=== PATIENT | female | born 1975 | race Caucasian/White ===

== ENCOUNTER 2016-11-18 07:52 | Emergency (ER) | payer MEDICAID ==
[~2016-11-18] VITALS: Wt 58.0 kg
[2016-11-18 08:39] LABS: BASOPHILS % 0.5 % (0.0-2.0); EOSINOPHILS # 0.1 10^3/ul (0.0-0.5); EOSINOPHILS % 0.8 % (0.0-7.0); HEMATOCRIT 41.4 % (37.0-47.0); HEMOGLOBIN 14.1 g/dl (12.0-16.0); LYMPHOCYTES # 1.7 10^3/ul (0.8-2.9); MEAN CORPUSCULAR HEMOGLOBIN 29.6 pg (29.0-33.0); MEAN PLATELET VOLUME 10.4 fl (7.4-10.4); MONOCYTE # 0.5 10^3/ul (0.3-0.9); MONOCYTES % 5.6 % (0.0-11.0); NEUTROPHIL # 5.8 10^3/ul (1.6-7.5); NEUTROPHILS % 72.1 % (39.0-77.0); PLATELET COUNT 174 10^3/UL (140-440); RED BLOOD COUNT 4.76 10^6/ul (4.20-5.40); RED CELL DISTRIBUTION WIDTH 14.7 % (11.5-14.5); UNCORRECTED WBC 8.1 10^3/ul (4.8-10.8); WHITE BLOOD COUNT 8.1 10^3/ul (4.8-10.8)
[2016-11-18 08:42] LABS: CONDITION 1; LH ANALYZER COMMENTS 1
[2016-11-18 08:54] LABS: ADD UMIC YES; URINE BILIRUBIN (Dip) NEGATIVE (NEGATIVE); URINE BLOOD (Dip) 3+ (NEGATIVE); URINE GLUCOSE (Dip) NEGATIVE (NEGATIVE); URINE KETONES (Dip) 15 (NEGATIVE); URINE LEUKOCYTE ESTERASE (Dip) NEGATIVE (NEGATIVE); URINE NITRITE (Dip) NEGATIVE (NEGATIVE); URINE TOTAL PROTEIN (Dip) 2+ (NEGATIVE); URINE UROBILINOGEN (Dip) 0.2 E.U./dL (0.1-1.0)
[2016-11-18 08:55] LABS: URINE COLOR RED (YELLOW)
--- NOTE | 2016-11-18 08:57 | RADRPT ---
PROCEDURE: US OB. CLINICAL INDICATION: Vaginal bleeding in . TECHNIQUE: Transabdominal and endovaginal imaging of the uterus is available for review COMPARISON: None available FINDINGS: No intrauterine is identified. The endometrial stripe is heterogeneous and measures 21 mm in thickness. The uterus is otherwise unremarkable. The right ovary measures 3.1 x 1.4 x 3.7 cm a nd the left ovary measures 3.1 x 3.0 x 7 cm. No adnexal mass is identified. No significant free fl uid is noted within the pelvis. IMPRESSION: No intrauterine identified. There are no adnexal masses. Correlation with serial beta HC Gs and repeat pelvic ultrasound as clinically indicated, is recommended, as ectopic is not excluded on this examination. RPTAT: HH .Karol Lindsay MD, Date Time Electronically viewed and signed by .Karol Lindsay MD, on 11/18/2016 08:57 .G/
[2016-11-18 08:59] LABS: URINE RBCS >200 /HPF (0)
[2016-11-18] MEDS ORDERED: ACETAMINOPHEN 500 MG TAB PO STA (09:06)
[2016-11-18] MEDS ORDERED: ACET500C5 PO (09:30)
[2016-11-18] MEDS ORDERED: ACET325T33 PO ×2 (09:30→15:26)
--- NOTE | 2016-11-18 09:48 | ERD ---
ER Documentation Chief Complaint Date/Time DATE: 11/18/16 TIME: 09:41 Chief Complaint mild abd pain and vag bleed since this am. 10 wks preg. no dysuria HPI This is a 41-year-old female G 4 P3 stating she is 10 weeks presenting to the emergency room complaining of pelvic pain and vaginal bleeding since this morning. Patient states that her last menstrual period was August 31. 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 Patient states that she has used 4 pads since this morning. Patient denies any nausea, vomiting, patient describes the pain as contractions ROS All systems reviewed and are negative except as per history of present illness. Medications Home Meds Active Scripts Acetaminophen* (Tylenol*) 325 Mg Tablet, 2 TAB PO Q6 Y for PAIN AND OR ELEVATED TEMP, #20 TAB Prov:JOAQUINA VALLE PA-C 11/18/16 Acetaminophen* (Tylophen*) 500 Mg Capsule, 1 CAP PO Q6H Y for PAIN AND OR ELEVATED TEMP, #20 CAP Prov:JOAQUINA VALLE PA-C 11/18/16 Allergies Allergies: Coded Allergies: No Known Allergy (Unverified , 11/18/16) PMhx/Soc Medical and Surgical Hx: pt denies Medical Hx, pt denies Surgical Hx Hx Alcohol Use: No Hx Substance Use: No Hx Tobacco Use: No Physical Exam Vitals Vital Signs Date Time Temp Pulse Resp B/P Pulse Ox O2 Delivery O2 Flow Rate FiO2 11/18/16 07:56 98.6 112 20 140/88 99 Physical Exam Const: [] Head: Atraumatic Eyes: Normal Conjunctiva ENT: Normal External Ears, Nose and Mouth. Neck: Full range of motion..~ No meningismus. Resp: Clear to auscultation bilaterally Cardio: Regular rate and rhythm, no murmurs Abd: Soft, non tender, non distended. Normal bowel sounds Skin: No petechiae or rashes Back: No midline or flank tenderness Ext: No cyanosis, or edema Neur: Awake and alert Psych: Normal Mood and Affect Result Diagram: 11/18/16 0825 Results 24 hrs Laboratory Tests Test 11/18/16 08:25 Basophils # 0.010^3/ul Basophils % 0.5% Beta HCG, Quantitative 3812.6mIU/ml Blood Morphology Comment Eosinophils # 0.110^3/ul Eosinophils % 0.8% Hematocrit 41.4% Hemoglobin 14.1g/dl Lymphocytes # 1.710^3/ul Lymphocytes % 21.0% Mean Corpuscular Hemoglobin 29.6pg Mean Corpuscular Hemoglobin Concent 34.0g/dl Mean Corpuscular Volume 87.0fl Mean Platelet Volume 10.4fl Monocytes # 0.510^3/ul Monocytes % 5.6% Neutrophils # 5.810^3/ul Neutrophils % 72.1% Nucleated Red Blood Cells # 0.010^3/ul Nucleated Red Blood Cells % 0.0/100WBC Platelet Count 03960^3/UL Red Blood Count 4.7610^6/ul Red Cell Distribution Width 14.7% Urine Bilirubin NEGATIVE Urine Clarity SLIGHTLY CLOUDY Urine Color RED Urine Glucose NEGATIVE% Urine Hemoglobin 3+ Urine Ketones 15 Urine Leukocyte Esterase NEGATIVE Urine Microscopic RBC >200/HPF Urine Microscopic WBC NONE SEEN/HPF Urine Nitrite NEGATIVE Urine Specific [place] 1.020 Urine Total Protein 2+ Urine Urobilinogen 0.2 E.U./dL Urine pH 7.0 White Blood Count 8.110^3/ul Current Medications Medications (Trade) Dose Ordered Sig/Vianey Route PRN Reason Start Time Stop Time Status Last Admin Dose Admin Acetaminophen (Tylenol Tab) 1,000 mg ONCE STAT PO 11/18/16 09:06 11/18/16 09:07 DC 11/18/16 09:13 Procedures/MDM This is a 41-year-old female stating she is 10 weeks presenting to the emergency room complaining of pelvic pain and vaginal bleeding in . Lab work was drawn. CBC did not show any evidence of leukocytosis or anemia. Beta hcg was 3812. An OB ultrasound was done and radiologist stated: No intrauterine identified. There are no adnexal masses. Correlation with serial beta HCGs and repeat pelvic ultrasound as clinically indicated, is recommended, as ectopic is not excluded on this examination. My differentials include but not limited to threatened vs complete , ectopic , early . 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 I discussed that she is unable to follow-up with her JUNIOR QA ANALYST to return in 2 days for repeat ultrasound and blood work. I discussed the patient to return to the ER for any worsening signs or symptoms. Patient understands and agrees with this plan Departure Diagnosis: Primary Impression: Vaginal bleeding in patient at less than 20 weeks ges... Additional Impression: Threatened Condition: Fair Patient Instructions: Bleeding During Early , Possible Miscarriage ( Threatened ) Additional Instructions: Visite a page [email or web address] para un EXAMEN.Regrese a estas instalaciones si no se mejora emerita esperbamos o emerita le dijimos. Regrese a estas instalaciones dentro de [facility] para un examen de seguimiento.Regrese antes si page condicin se empeora. [place] toda la medicina kj y emerita se le indic. Regrese a estas instalaciones si no se mejora emerita esperbamos o emerita le dijimos. JOAQUINA VALLE PA-C Nov 18, 2016 09:48
== END 2016-11-18 10:25 | disposition home or self-care (01) ==
LOC: FTE 07:52
DX: O20.9 Hemorrhage in early pregnancy, unspecified (principal); O20.0 Threatened abortion; R10.2 Pelvic and perineal pain
CPT/HCPCS: 36415; 76801; 76817; 81001; 84702; 85025; 86900; 86901; Z7502; Z7610; 81003

== ENCOUNTER 2016-11-18 12:25 | Emergency (ER) | payer MEDICAID ==
[~2016-11-18] VITALS: Wt 57.2 kg
[~2016-11-18 12:25] MED LIST: ACET325T33 PO; ACET500C5 PO
[2016-11-18] MEDS ORDERED: SOD CHLORIDE 0.9% 1,000 ML IV STA (13:38)
[2016-11-18] MEDS ORDERED: ACETAMINOPHEN 325 MG TAB PO STA (13:38)
[2016-11-18 14:17] LABS: ADD UMIC YES; URINE BILIRUBIN (Dip) 1+ (NEGATIVE); URINE BLOOD (Dip) 3+ (NEGATIVE); URINE COLOR YELLOW (YELLOW); URINE GLUCOSE (Dip) NEGATIVE (NEGATIVE); URINE KETONES (Dip) 40 (NEGATIVE); URINE LEUKOCYTE ESTERASE (Dip) NEGATIVE (NEGATIVE); URINE NITRITE (Dip) NEGATIVE (NEGATIVE); URINE TOTAL PROTEIN (Dip) 2+ (NEGATIVE); URINE UROBILINOGEN (Dip) 0.2 E.U./dL (0.1-1.0)
[2016-11-18 14:18] LABS: BASOPHILS % 0.2 % (0.0-2.0); HEMATOCRIT 36.4 % (37.0-47.0); HEMOGLOBIN 12.4 g/dl (12.0-16.0); LYMPHOCYTES # 0.6 10^3/ul (0.8-2.9); LYMPHOCYTES % 4.7 % (15.0-51.0); MEAN CORPUSCULAR HEMOGLOBIN 29.5 pg (29.0-33.0); MEAN CORPUSCULAR VOLUME 86.7 fl (82.0-101.0); MEAN PLATELET VOLUME 10.1 fl (7.4-10.4); MONOCYTE # 0.5 10^3/ul (0.3-0.9); MONOCYTES % 3.5 % (0.0-11.0); NEUTROPHIL # 12.4 10^3/ul (1.6-7.5); NEUTROPHILS % 91.6 % (39.0-77.0); PLATELET COUNT 180 10^3/UL (140-440); RED CELL DISTRIBUTION WIDTH 14.8 % (11.5-14.5); UNCORRECTED WBC 13.6 10^3/ul (4.8-10.8); WHITE BLOOD COUNT 13.6 10^3/ul (4.8-10.8)
[2016-11-18 14:19] LABS: CONDITION 1; LH ANALYZER COMMENTS 1
[2016-11-18 14:22] LABS: ICTOTEST NEGATIVE (NEGATIVE); MUCUS,URINE MODERATE; SQUAMOUS EPITHELIAL CELL,UR FEW; URINE RBCS >200 /HPF (0)
[2016-11-18 14:22] LABS: ALBUMIN 4.2 g/dl (3.3-4.9); INR 1.04; PROTIME 13.6 Sec (12.2-14.2); PT RATIO 1.1
[2016-11-18 14:23] LABS: POTASSIUM 4.3 mmol/L (3.5-5.1)
[2016-11-18 14:25] LABS: BILIRUBIN,INDIRECT 0.3 mg/dl (0-1.1); BILIRUBIN,TOTAL 0.3 mg/dl (0.2-1.3); CREATININE 0.56 mg/dl (0.44-1.00)
[2016-11-18 14:26] LABS: ALBUMIN/GLOBULIN RATIO 1.35; CALCIUM 9.2 mg/dl (8.4-10.2); TOTAL PROTEIN 7.3 g/dl (6.1-8.1)
[2016-11-18] MEDS ORDERED: ACET325T33 PO (15:26)
--- NOTE | 2016-11-18 15:31 | ERD ---
ER Documentation Chief Complaint Date/Time DATE: 11/18/16 TIME: 15:28 Chief Complaint INCREASED VAG BLEED AND DIAPHORESIS AND SYNCOPAL EPISODE IN BATHROOM HPI 41-year-old woman here for reevaluation for continued vaginal bleeding. She states she was in her bathroom and felt lightheaded and had heavy vaginal bleeding and clots passed. She was just seen and evaluated earlier today for similar symptoms, obstetrical ultrasound did not reveal any intrauterine and her beta hCG was 3812. She denies actual loss of consciousness, no fevers or chills, no chest pain or shortness of breath, no headache or blurry vision. ROS All systems reviewed and are negative except as per history of present illness. Medications Home Meds Active Scripts Acetaminophen* (Tylenol*) 325 Mg Tablet, 2 TAB PO Q8 Y for PAIN AND OR ELEVATED TEMP, #30 TAB Prov:FABIO PAUL MD 11/18/16 Discontinued Scripts Acetaminophen* (Tylenol*) 325 Mg Tablet, 2 TAB PO Q6 Y for PAIN AND OR ELEVATED TEMP, #20 TAB Prov:JOAQUINA VALLE PA-C 11/18/16 Acetaminophen* (Tylophen*) 500 Mg Capsule, 1 CAP PO Q6H Y for PAIN AND OR ELEVATED TEMP, #20 CAP Prov:JOAQUINA VALLE PA-C 11/18/16 Allergies Allergies: Coded Allergies: No Known Allergy (Unverified , 11/18/16) PMhx/Soc None Medical and Surgical Hx: pt denies Medical Hx, pt denies Surgical Hx History of Surgery: No Anesthesia Reaction: No Hx Neurological Disorder: No Hx Respiratory Disorders: No Hx Cardiac Disorders: No Hx Psychiatric Problems: No Hx Miscellaneous Medical Probl: No Hx Alcohol Use: No Hx Substance Use: No Hx Tobacco Use: No Smoking Status: Never smoker FmHx Family History: No diabetes Physical Exam Vitals Vital Signs Date Time Temp Pulse Resp B/P Pulse Ox O2 Delivery O2 Flow Rate FiO2 11/18/16 15:38 98.5 72 20 107/68 100 Room Air 11/18/16 15:03 84 22 129/112 98 Room Air 11/18/16 12:36 97.5 81 20 95/52 98 Physical Exam GENERAL: Well-developed, well-nourished, well-hydrated, hypotensive HEENT: Moist mucous membranes, pink conjunctiva, no cervical spine tenderness or step-off deformities, no goiter, no jaundice or icterus, extraocular movements intact without pain. No submandibular induration, and no pharyngeal erythema NEURO: Alert and oriented 3, cranial nerves II through XII intact bilaterally, pupils equal round reactive to light, no focal deficits or facial asymmetry, sensation intact distally Strength 5/5 in upper and lower extremities bilaterally CARDIAC: Tachycardic and regular, no murmurs rubs or gallops LUNGS: Clear bilaterally no wheezing crackles or stridor ABDOMEN: Soft nontender, no guarding, no rigidity, no rebound, no psoas sign no obturator sign. Normoactive bowel sounds SKIN: Warm and dry to touch, no abrasions, contusions, or hematomas, no lacerations, no ecchymosis, no target lesions, and without ulcers EXTREMITIES: No clubbing cyanosis or edema, calves are bilaterally symmetrical, no Homans sign, no popliteal cord sign. Distal pulses equal and bilateral PSYCH: Normal affect without agitation or irritability Result Diagram: 11/18/16 1349 11/18/16 1349 Results 24 hrs Laboratory Tests Test 11/18/16 13:38 11/18/16 13:49 Urine Bilirubin 1+ Urine Clarity BLOODY Urine Color YELLOW Urine Glucose NEGATIVE% Urine Hemoglobin 3+ Urine Ictotest NEGATIVE Urine Ketones 40 Urine Leukocyte Esterase NEGATIVE Urine Microscopic RBC >200/HPF Urine Microscopic WBC 0-2/HPF Urine Mucus MODERATE Urine Nitrite NEGATIVE Urine Specific [place] >=1.030 Urine Squamous Epithelial Cells FEW Urine Total Protein 2+ Urine Urobilinogen 0.2 E.U./dL Urine pH 5.5 Activated Partial Thromboplast Time 24.0Sec Alanine Aminotransferase (ALT/SGPT) 25IU/L Albumin 4.2g/dl Albumin/Globulin Ratio 1.35 Alkaline Phosphatase 68IU/L Anion Gap 17 Aspartate Amino Transf (AST/SGOT) 19IU/L Basophils # 0.010^3/ul Basophils % 0.2% Beta HCG, Quantitative 2350.2mIU/ml Blood Morphology Comment Blood Urea Nitrogen 10mg/dl Calcium Level 9.2mg/dl Carbon Dioxide Level 24mmol/L Chloride Level 104mmol/L Creatinine 0.56mg/dl Direct Bilirubin 0.00mg/dl Eosinophils # 0.010^3/ul Eosinophils % 0.0% Globulin 3.10g/dl Glucose Level 126mg/dl Hematocrit 36.4% Hemoglobin 12.4g/dl INR International Normalized Ratio 1.04 Indirect Bilirubin 0.3mg/dl Lymphocytes # 0.610^3/ul Lymphocytes % 4.7% Mean Corpuscular Hemoglobin 29.5pg Mean Corpuscular Hemoglobin Concent 34.0g/dl Mean Corpuscular Volume 86.7fl Mean Platelet Volume 10.1fl Monocytes # 0.510^3/ul Monocytes % 3.5% Neutrophils # 12.410^3/ul Neutrophils % 91.6% Nucleated Red Blood Cells # 0.010^3/ul Nucleated Red Blood Cells % 0.0/100WBC Platelet Count 78566^3/UL Potassium Level 4.3mmol/L Prothrombin Time 13.6Sec Prothrombin Time Ratio 1.1 Red Blood Count 4.2010^6/ul Red Cell Distribution Width 14.8% Sodium Level 141mmol/L Total Bilirubin 0.3mg/dl Total Protein 7.3g/dl White Blood Count 13.610^3/ul Current Medications Medications (Trade) Dose Ordered Sig/Vianey Route PRN Reason Start Time Stop Time Status Last Admin Dose Admin Sodium Chloride (NS) 1,000 ml @ 2,000 mls/hr Q30M STAT IV 11/18/16 13:38 11/18/16 14:07 DC 11/18/16 14:06 Acetaminophen (Tylenol Tab) 650 mg ONCE STAT PO 11/18/16 13:38 11/18/16 13:40 DC 11/18/16 14:06 Procedures/MDM IV line was established patient was placed on surveillance system monitor rhythm strip revealed a sinus rhythm at about 80 bpm with upright P and T waves. Patient was afebrile. I administered 2 L normal saline intravenously for dehydration, and acetaminophen 650 mg p.o. with good effect. CBC and electrolytes were normal, liver function tests were normal, urine analysis was negative for infection. Beta-hCG was 2350, which is down from earlier today I reviewed her earlier obstetric ultrasound. There was no ectopic noted there was no intrauterine noted and with this falling beta-hCG and continued vaginal bleeding I do suspect complete miscarriage. Patient feels much better and her vital signs are normal. She is without complaints of pain and can be managed as an outpatient with follow-up with her forge operator. Patient states her vaginal bleeding has resolved while here in the ED. Differential diagnoses considered, included but not limited to cervicitis, retained products of conception, ectopic , anemia, seizure, syncope, sepsis, stroke, meningitis, encephalitis, pneumonia, appendicitis, cholecystitis , bowel obstruction, pyelonephritis, nephrolithiasis, cystitis, as well as metabolic, hematologic, and electrolyte abnormalities. As well as abscess, cellulitis, fractures, and dislocations. Patient feels much better at this time, and vital signs are normal, symptoms have improved. I did give strict instructions to return to the ED if symptoms continue or worsen, patient will otherwise follow-up with primary care physician. Patient understood instructions and agreed to plan. Departure Diagnosis: Primary Impression: Complete miscarriage Additional Impression: Excessive vaginal bleeding Condition: Good Patient Instructions: Miscarriage, Spontaneous (Completed) FABIO PAUL MD Nov 18, 2016 15:31
[2016-11-18 15:38] VITALS: BP 107/68; PULSE 72; RESP 20; TEMP 98.5
== END 2016-11-18 15:50 | disposition home or self-care (01) ==
LOC: E/R 12:25
DX: O03.9 Complete or unspecified spontaneous abortion without complication (principal)
CPT/HCPCS: 36415; 80053; 81001; 84702; 85025; 85610; 85730; 86850; 86900; 86901; J7030; Z7502; Z7610; 81003

== ENCOUNTER 2018-12-08 15:52 | Emergency (ER) | payer MEDICAID ==
[~2018-12-08] VITALS: Ht 154.9 cm; Wt 59.1 kg
[~2018-12-08 15:52] MED LIST changes: -ACET500C5 PO
[2018-12-08 15:57] VITALS: Ht 154.9 cm; Wt 59.1 kg
--- NOTE | 2018-12-08 17:22 | ERD ---
ER Documentation Chief Complaint Chief Complaint 8 WKLS PREG WITH VAGINAL BLEEDING & PELVIC PAIN HPI Patient is a 43-year-old female who is with 1 miscarriage approximately 8 weeks complaining of light vaginal bleeding that began today. She has mild lower pelvic pain as well. She denies any clots. No dysuria or frequency. No fever. No nausea or vomiting or diarrhea. ROS All systems reviewed and are negative except as per history of present illness. Medications Home Meds Active Scripts Cephalexin* (Keflex*) 500 Mg Capsule, 500 MG PO TID for 5 Days, CAP Prov:CARLOS DANG PA-C 12/08/18 Acetaminophen* (Tylenol*) 325 Mg Tablet, 2 TAB PO Q8 PRN for PAIN AND OR ELEVATED TEMP, #30 TAB Prov:FABIO PAUL MD 11/18/16 Allergies Allergies: Coded Allergies: No Known Allergy (Unverified , 11/18/16) PMhx/Soc History of Surgery: No Anesthesia Reaction: No Hx Neurological Disorder: No Hx Respiratory Disorders: No Hx Cardiac Disorders: No Hx Psychiatric Problems: No Hx Miscellaneous Medical Probl: No Hx Alcohol Use: No Hx Substance Use: No Hx Tobacco Use: No Smoking Status: Never smoker FmHx Family History: No diabetes Physical Exam Vitals Vital Signs Date Temp Pulse Resp B/P (MAP) Pulse Ox O2 O2 Flow FiO2 Time Delivery Rate 12/08/18 98.9 89 16 134/65 99 15:57 (88) Physical Exam INITIAL VITAL SIGNS: Reviewed by me GENERAL: Awake, alert and oriented x 4, well appearing, nontoxic, speaking in full sentences. No acute distress HEAD: Atraumatic NECK: Supple. No masses. Full range of motion. No meningismus. No midline tenderness. EYES: EOMI. PERRL. RESPIRATORY: Clear to auscultation bilaterally. Symmetric chest wall rise. No wheezing or rales. No accessory muscle use. CV: Regular rate and rhythm. No murmurs, rubs, or gallops. ABDOMEN: Soft, non-distended. Nontender. Negative [place]. Negative Mc[place]neys point tenderness. No CVA tenderness bilaterally. No guarding. No rebound. Result Diagram: 12/08/18 1701 Results 24 hrs Laboratory Tests Test 12/08/18 17:01 White Blood Count 8.8 10^3/ul Red Blood Count 4.36 10^6/ul Hemoglobin 12.7 g/dl Hematocrit 38.0 % Mean Corpuscular Volume 87.2 fl Mean Corpuscular Hemoglobin 29.1 pg Mean Corpuscular Hemoglobin Concent 33.4 g/dl Red Cell Distribution Width 13.3 % Platelet Count 204 10^3/UL Mean Platelet Volume 10.6 fl Immature Granulocytes % 0.300 % Neutrophils % 70.1 % Lymphocytes % 22.1 % Monocytes % 5.9 % Eosinophils % 1.0 % Basophils % 0.6 % Nucleated Red Blood Cells % 0.0 /100WBC Immature Granulocytes # 0.030 10^3/ul Neutrophils # 6.2 10^3/ul Lymphocytes # 2.0 10^3/ul Monocytes # 0.5 10^3/ul Eosinophils # 0.1 10^3/ul Basophils # 0.1 10^3/ul Nucleated Red Blood Cells # 0.0 10^3/ul Urine Color STRAW Urine Clarity SLIGHTLY CLOUDY Urine pH 7.0 Urine Specific [place] 1.004 Urine Ketones NEGATIVE mg/dL Urine Nitrite NEGATIVE mg/dL Urine Bilirubin NEGATIVE mg/dL Urine Urobilinogen NEGATIVE mg/dL Urine Leukocyte Esterase 3+ Timmy/ul Urine Microscopic RBC 6 /HPF Urine Microscopic WBC 15 /HPF Urine Squamous Epithelial Cells MODERATE /HPF Urine Bacteria FEW /HPF Urine Hemoglobin 3+ mg/dL Urine Glucose NEGATIVE mg/dL Urine Total Protein NEGATIVE mg/dl Beta HCG, Quantitative 07055.0 mIU/ml Procedures/MDM The differential diagnosis includes but is not limited to threatened/incomplete/inevitable/complete , ectopic , non- related bleeding, and others. Findings are consistent with probable demise. Patient was given copies of everything and was advised to return here in 2 days for follow-up ultrasound and beta hCG. He was given copies of all of her results. Patient counseled regarding my diagnostic impression and care plan. Prior to discharge all questions answered. Pt agrees with treatment plan and understands strict return precautions. Pt is instructed to follow up with primary care provider within 24-48 hours. Precautionary instructions provided including instructions to return to the ER if not improving or for any worsening or changing symptoms or concerns. Departure Diagnosis: Primary Impression: Cystitis Additional Impression: demise Condition: Stable CARLOS DANG PA-C Dec 08, 2018 17:22
[2018-12-08 18:49] VITALS: BP 118/72; PULSE 74; RESP 19
[2018-12-08] MEDS ORDERED: CEPH-443 PO (18:49)
== END 2018-12-08 18:55 | disposition home or self-care (01) ==
LOC: FTE 15:52
DX: O23.11 Infections of bladder in pregnancy, first trimester (principal); O02.1 Missed abortion
CPT/HCPCS: 76801; 76817; 81001; 84702; 85025; 86900; 86901; Z7502

== ENCOUNTER 2018-12-10 05:11 | Emergency (ER) | payer MEDICAID ==
[~2018-12-10] VITALS: Ht 157.5 cm; Wt 59.0 kg
[~2018-12-10 05:11] MED LIST changes: +CEPH-443 PO
[2018-12-10 05:28] VITALS: Ht 157.5 cm; Wt 59.0 kg
--- NOTE | 2018-12-10 06:17 | ERD ---
ER Documentation Chief Complaint Chief Complaint 8 weeks ; vag bleed x 1 day; 6 pads in 12 hours, dizzy, weakness HPI 43-year-old female, G5, P3 presents to the emergency department, complaining of vaginal bleeding for 1 day. The patient has a EGA 8 weeks. She is complaining of severe pain, feeling dizzy. ROS All systems reviewed and are negative except as per history of present illness. Medications Home Meds Active Scripts Cephalexin* (Keflex*) 500 Mg Capsule, 500 MG PO TID for 5 Days, CAP Prov:CARLOS DANG PA-C 12/08/18 Acetaminophen* (Tylenol*) 325 Mg Tablet, 2 TAB PO Q8 PRN for PAIN AND OR ELEVATED TEMP, #30 TAB Prov:FABIO PAUL MD 11/18/16 Allergies Allergies: Coded Allergies: No Known Allergy (Unverified , 11/18/16) PMhx/Soc History of Surgery: No Anesthesia Reaction: No Hx Neurological Disorder: No Hx Respiratory Disorders: No Hx Cardiac Disorders: No Hx Psychiatric Problems: No Hx Miscellaneous Medical Probl: No Hx Alcohol Use: No Hx Substance Use: No Hx Tobacco Use: No FmHx Family History: No diabetes, No coronary disease Physical Exam Vitals Vital Signs Date Temp Pulse Resp B/P (MAP) Pulse Ox O2 O2 Flow FiO2 Time Delivery Rate 12/10/18 98.6 78 18 92/52 (65) 98 Room Air 10:35 12/10/18 98.2 71 18 104/53 99 Room Air 06:49 (70) 12/10/18 98.5 72 16 96/52 (67) 100 05:28 Physical Exam Const: No acute distress Head: Atraumatic Eyes: Normal Conjunctiva ENT: Normal External Ears, Nose and Mouth. Neck: Full range of motion. No meningismus. Resp: Clear to auscultation bilaterally Cardio: Regular rate and rhythm, no murmurs Abd: Soft, non tender, non distended. Normal bowel sounds Skin: No petechiae or rashes Back: No midline or flank tenderness Ext: No cyanosis, or edema Neur: Awake and alert Psych: Normal Mood and Affect Result Diagram: 12/10/18 0642 12/10/18 0642 Results 24 hrs Laboratory Tests Test 12/10/18 06:42 12/10/18 09:25 12/10/18 09:26 White Blood Count 17.9 10^3/ul Red Blood Count 4.30 10^6/ul Hemoglobin 12.6 g/dl Hematocrit 36.4 % Mean Corpuscular Volume 84.7 fl Mean Corpuscular Hemoglobin 29.3 pg Mean Corpuscular Hemoglobin Concent 34.6 g/dl Red Cell Distribution Width 13.4 % Platelet Count 215 10^3/UL Mean Platelet Volume 11.0 fl Immature Granulocytes % 0.700 % Neutrophils % 85.5 % Lymphocytes % 9.5 % Monocytes % 3.7 % Eosinophils % 0.3 % Basophils % 0.3 % Nucleated Red Blood Cells % 0.0 /100WBC Immature Granulocytes # 0.130 10^3/ul Neutrophils # 15.3 10^3/ul Lymphocytes # 1.7 10^3/ul Monocytes # 0.7 10^3/ul Eosinophils # 0.1 10^3/ul Basophils # 0.1 10^3/ul Nucleated Red Blood Cells # 0.0 10^3/ul Sodium Level 137 mmol/L Potassium Level 4.2 mmol/L Chloride Level 103 mmol/L Carbon Dioxide Level 23 mmol/L Anion Gap 11 Blood Urea Nitrogen 9 mg/dl Creatinine 0.49 mg/dl Est Glomerular Filtrat Rate mL/min > 60 mL/min Glucose Level 144 mg/dl Calcium Level 9.4 mg/dl Bedside Urine pH (LAB) 6.5 Bedside Urine Protein (LAB) Trace Bedside Urine Glucose (UA) Negative Bedside Urine Ketones (LAB) 2+ Bedside Urine Blood 3+ Bedside Urine Nitrite (LAB) Negative Bedside Urine Leukocyte Esterase (L Negative POC Beta HCG, Qualitative POSITIVE Current Medications Medications Dose Sig/Vianey Start Time Status Last (Trade) Ordered Route PRN Stop Time Admin Dose Reason Admin Sodium 1,000 ml @ Q1H STAT 12/10/18 DC 12/10/18 Chloride 1,000 mls/hr IV 06:18 12/10/18 06:44 07:17 Morphine 4 mg ONCE STAT 12/10/18 Cancel Sulfate IV 06:18 12/10/18 (morphine) 06:19 Ondansetron 4 mg ONCE STAT 12/10/18 DC 12/10/18 HCl (Zofran IV 06:18 12/10/18 06:44 Inj) 06:20 0.5 mg ONCE STAT 12/10/18 DC 12/10/18 Hydromorphone IV 06:32 12/10/18 06:45 HCl 06:34 (Dilaudid) Sodium 1,000 ml @ Q1H ONCE 12/10/18 DC 12/10/18 Chloride 1,000 mls/hr IV 07:00 12/10/18 07:16 07:59 Departure Diagnosis: Primary Impression: Complete miscarriage Condition: Stable Additional Instructions: Muchas amy por [facility] para page servicio. Esperamos que en page visita a la leyda de emergencia page problema medico haya sido solucionado y que se sienta mucho mejor. Para estar seguros que page mejoria sigue en proceso, le pedimos el favor de hacer luis f valdo de seguimiento medico con page doctor primario en los proximos 2-4 alicea. Lleve con usted estos documentos y las medicinas recetadas. Si declan sintomas empeoran, NO SE ESPERE, por favor regrese a leyda de emergencia INMEDIATAMENTE. En cyndi que usted no tenga un mdico de atencin primaria: Llame al mdico o clnica comunitaria de referencia que aparece abajo diamond las horas de consultorio para hacer luis f valdo para que le vean. CLINICAS: [facility] [phone] [facility] [phone] [facility] [phone] [facility] [phone] [place] [id number] [phone] [facility]. [phone] [place] Dec 10, 2018 06:17
[2018-12-10] MEDS ORDERED: morphine 4 MG/ML VIAL IV STA (06:18)
[2018-12-10] MEDS ORDERED: SOD CHLORIDE 0.9% 1,000 ML IV STA (06:18)
[2018-12-10] MEDS ORDERED: ONDANSETRON 4 MG INJ IV STA (06:18)
[2018-12-10] MEDS ORDERED: HYDROmorphONE 0.5 MG/0.5 ML SYG IV STA (06:32)
[2018-12-10] MEDS ORDERED: SOD CHLORIDE 0.9% 1,000 ML IV ONE (07:00)
[2018-12-10] MEDS ORDERED: DOCU-144 PO (11:05)
[2018-12-10] MEDS ORDERED: IBUP-1561 PO (11:05)
[2018-12-10] MEDS ORDERED: FER325 PO (11:05)
[2018-12-10 11:09] VITALS: BP 104/56; PULSE 76; RESP 18
== END 2018-12-10 11:12 | disposition home or self-care (01) ==
LOC: FTE 05:11
DX: O02.1 Missed abortion (principal)
CPT/HCPCS: 36415; 80048; 81003; 81025; 85025; 96361; 96374; 96375; J1170; J2405; J7030; Z7502